=== PATIENT | female | born 1970 | race Caucasian/White ===

== ENCOUNTER → 2021-01-20 | Outpatient (CLI) | payer BC ==
[2021-01-21 08:14] LABS: VITAMIN D, 25-HYDROXY 26.8 ng/mL (30.0-100.0)
[2021-01-21 11:14] LABS: RHEUMATOID ARTHRITIS FACTOR <10.0 IU/mL (0.0-13.9)
[2021-01-22 00:10] LABS: CCP ANTIBODIES IGG/IGA 5 units (0-19)
== END ==
LOC: LAB 10:00
PROVIDERS: Internal Medicine
DX: R53.83 Other fatigue (principal); L65.9 Nonscarring hair loss, unspecified; I73.00 Raynaud's syndrome without gangrene; E55.9 Vitamin D deficiency, unspecified; D89.89 Other specified disorders involving the immune mechanism, not elsewhere classified; R76.8 Other specified abnormal immunological findings in serum
CPT/HCPCS: 36415; 82728; 83520; 84439; 84443; 86200; 86431

== ENCOUNTER → 2021-01-21 | Outpatient (CLI) | payer BC | LOC: LAB 09:48 | PROVIDERS: Internal Medicine | DX: R53.83 Other fatigue (principal); L65.9 Nonscarring hair loss, unspecified; I73.00 Raynaud's syndrome without gangrene; E55.9 Vitamin D deficiency, unspecified | CPT/HCPCS: 82595 ==

== ENCOUNTER → 2021-04-04 | Outpatient (CLI) | payer BC ==
[~2021-04-04] MED LIST: PROTONIX40 MG PO
== END ==
LOC: LAB 09:58
DX: J02.9 Acute pharyngitis, unspecified (principal)
CPT/HCPCS: 87081; 87880

== ENCOUNTER 2021-04-19 20:09 | Emergency (ER) | payer BC ==
[2021-04-19 21:42] LABS: HEMOGLOBIN 13.4 gm/dl (12.3-15.3); RED BLOOD COUNT 4.45 M/UL (4.00-5.10); WHITE BLOOD COUNT 5.8 K/UL (4.5-11.0)
[2021-04-19 22:00] LABS: BUN/CREATININE RATIO 20 (0-10)
[2021-04-19] MEDS ORDERED: PROTONIX40 MG PO (23:00)
== END 2021-04-19 23:15 | disposition home or self-care (01) ==
LOC: ER1 20:09
PROVIDERS: Physician Assistant Medical
DX: R11.2 Nausea with vomiting, unspecified (principal); R04.0 Epistaxis; Z20.822 Contact with and (suspected) exposure to COVID-19
CPT/HCPCS: 71045; 80053; 85025; 85610; 99285; U0002

== ENCOUNTER → 2021-04-26 | Outpatient (CLI) | payer BC | LOC: LAB 09:06 | DX: E78.5 Hyperlipidemia, unspecified (principal); E89.2 Postprocedural hypoparathyroidism; E55.9 Vitamin D deficiency, unspecified | CPT/HCPCS: 36415; 80061; 83735; 83970 ==

== ENCOUNTER → 2021-05-13 | Outpatient (CLI) | payer BC | LOC: MAMO 04-28 08:00 | DX: Z12.31 Encounter for screening mammogram for malignant neoplasm of breast (principal) | CPT/HCPCS: 77063; 77067 ==

== ENCOUNTER → 2021-10-18 | Outpatient (CLI) | payer BC ==
[2021-10-18 13:06] LABS: HEMOGLOBIN 12.9 gm/dl (12.3-15.3); RED BLOOD COUNT 4.38 M/UL (4.00-5.10)
[2021-10-18 13:40] LABS: BUN/CREATININE RATIO 15 (0-10)
== END ==
LOC: LAB 12:26
PROVIDERS: Family Medicine
DX: E78.5 Hyperlipidemia, unspecified (principal); E55.9 Vitamin D deficiency, unspecified
CPT/HCPCS: 36415; 80053; 80061; 83735; 85027